=== PATIENT | female | born 1960 | race Caucasian/White ===

== ENCOUNTER 2018-07-23 10:54 | Emergency (ER) | payer BC ==
[~2018-07-23] VITALS: Wt 57.2 kg
[2018-07-23 10:56] VITALS: BP 188/78; PULSE 99; RESP 20
[2018-07-23] MEDS ORDERED: KETOROLAC 30 MG INJ IM STA (11:51)
--- NOTE | 2018-07-23 11:53 | ERD ---
ER Documentation Chief Complaint Chief Complaint L LOWER BACK PAIN RADIATING TO LEFT LOWER LEG. FALL 2 WKS AGO. NO DEFORMITY HPI 58-year-old female with past medical history of diabetes type 2, hypertension who presents with complaint of lower back pain with radiation to the left lower extremity. Has been experiencing the symptoms since beginning of this year. Saw PMD on May 14 of this year. Presented to emergency room on May 16 had b jeni x-rays of the femur which was unremarkable. Also evaluated by rheumatology and orthopedic surgery were recently. Had MRI with notable multilevel changes including L3-L4, L2-L3 disc bulges and formal narrowing. Has follow-up with orthopedic clinic today at 1 PM. Presents his ED because of worsening pain and difficulty ambulating after returning to work after a week off today. Has tried multiple pain medications and recently been on short course of steroids for her symptoms. She otherwise denies lower extremity weakness, urinary or bowel incontinence. Has fallen twice in the last 2 weeks. she otherwise without complaint. ROS All systems reviewed and are negative except as per history of present illness. Medications Home Meds Active Scripts Ibuprofen* (Motrin*) 600 Mg Tab, 600 MG PO Q8, #30 TAB Prov:JEUSAMA FERRARIHO PA-C 07/23/18 Naproxen* (Naprosyn*) 500 Mg Tablet, 500 MG PO BID PRN for PAIN AND/OR INFLAMMATION, #30 TAB Prov:JEUDINEUSAMAHO PA-C 07/23/18 Tramadol HCl (Tramadol HCl) 50 Mg Tablet, 50 MG PO Q4 PRN for PAIN, #20 TAB Prov:JEUDINEUSAMAHO PA-C 07/23/18 Allergies Allergies: Coded Allergies: No Known Allergy (Unverified , 07/23/18) PMhx/Soc Hx Miscellaneous Medical Probl: Yes (DM, BACK PROBLEM) Hx Alcohol Use: No Hx Substance Use: No Hx Tobacco Use: No Smoking Status: Former smoker FmHx Family History: diabetes Physical Exam Vitals Vital Signs Date Temp Pulse Resp B/P (MAP) Pulse Ox O2 O2 Flow FiO2 Time Delivery Rate 07/23/18 99.1 99 20 188/78 98 10:56 (114) Physical Exam I have reviewed the triage vital signs. Const: Well nourished, well developed, appears stated age Eyes: PERRL, no conjunctival injection HENT: NCAT, Neck supple without meningismus CV: RRR, Warm, well-perfused extremities RESP: CTAB, Unlabored respiratory effort GI: soft, non-tender, non-distended, no masses MSK: No gross deformities appreciated, difficulty ambulating secondary to pain able to take to painful steps, positive straight leg test, silt throughout left lower extremity Lower Extremity - bilateral: Skin: No laceration Compartments: Soft Motor: Full active range of motion hip/knee/ankle/foot Sensation: Intact to light touch FDWS/MF/LF/P surfaces. Bones: Nontender pelvis/knee/proximal tibia/ malleoli/foot Joints: No effusion or laxity Pulses/Perfusion: 2+ DP, Capillary refill < 2 seconds Skin: Warm, dry. No rashes Neuro: grossly non focal Psych: Appropriate mood and affect. Results 24 hrs Current Medications Medications Dose Sig/Ryder Start Time Status Last (Trade) Ordered Route PRN Stop Time Admin Dose Reason Admin Ketorolac 30 mg ONCE STAT 07/23/18 DC 07/23/18 Tromethamine IM 11:51 07/23/18 11:57 (Toradol) 11:53 10 mg ONCE ONCE 07/23/18 DC 07/23/18 Dexamethasone IM 12:00 07/23/18 11:57 (Decadron) 12:01 Procedures/MDM 58-year-old female with complaint of lower back pain and left lower extremity radiculopathy. MRI with multilevel spine findings. Low suspicion for acute cord compression or cauda equina at this time, given presentation and symptoms, including epidural abscess or hematoma. Patient has no history of malignancy, active or distant history. Patient has no unexplained weight loss. No recent fevers, rigors, malaise, or recent infection. No history of IVDU or skin- popping. Patient does not have any history concerning for saddle anesthesia/perianal sensory loss or complaining of decreased rectal tone. Patien t does not have urinary retention or inability to control urine from overflow. Patient has no tenderness overlying spinous process. Patient has no focal weakness on examination. ED course: Toradol, Decadron Patient has appointment with orthopedic clinic today at 1 PM. Patient will be discharged with follow-up with her PMD as well as appropriate specialist for continued care of her chronic back complaints. Will discharge with tramadol as well as naproxen. Given exam and history, low suspicion for cord compression, cauda equina, epidural abscess/hematoma. Distally neurovascularly intact. Query likely musculoskeletal component. Discussed pain control,and follow up with PMD. Cautious return precautions discussed w/ full understanding DISPOSITION PLAN: We discussed follow up with the patient's primary care doctor within 24 to 48 hours. Patient counseled regarding my diagnostic impression and care plan. Prior to discharge all questions answered. Pt agrees with treatment plan and understands strict return precautions. Precautionary instructions provided including instructions to return to the ER if not improving or for any worsening or changing symptoms or concerns. Disclaimer: Inadvertent spelling and grammatical errors are likely due to EHR/dictation software use and do not reflect on the overall quality of patient care. Also, please note that the electronic time recorded on this note does not necessarily reflect the actual time of the patient encounter. ERMELINDA SHEFFIELD PA-C Jul 23, 2018 11:53
[2018-07-23] MEDS ORDERED: DEXAMETHASONE 10 MG/ML 1 ML INJ IM ONE (12:00)
[2018-07-23] MEDS ORDERED: IBUP-1542 PO (12:42)
[2018-07-23] MEDS ORDERED: NAPR-985 PO (12:42)
[2018-07-23] MEDS ORDERED: TRAM50TA2 PO (12:42)
== END 2018-07-23 13:00 | disposition home or self-care (01) ==
LOC: FTE 10:54
DX: M54.5 Low back pain (principal); E11.9 Type 2 diabetes mellitus without complications; Z87.891 Personal history of nicotine dependence
CPT/HCPCS: 96372; 99284; J1100; J1885